=== PATIENT | male | born 1985 | race Caucasian/White ===

== ENCOUNTER 2022-04-22 08:20 | Outpatient (CLI) | payer OTHER, SELFPAY | END 2022-04-22 08:21 | disposition home or self-care (01) | LOC: NFLDREF 08:22 | PROVIDERS: PCP Family Medicine; Visit Provider Registered Nurse | DX: Z31.41 Encounter for fertility testing (principal) | CPT/HCPCS: 89310; 89322; 89398 ==

== ENCOUNTER 2024-10-03 08:11 | Emergency (ER) | payer SELFPAY ==
--- OUTSIDE RECORDS SUMMARY | 2024-10-03 08:14 | XMS_ITS | Clinical Summary ---
Author Organization [facility] Address [address] [place] [id number] Care Team Providers Care Dry Finisher Name Role Phone Lorne Marcos MD Primary Care Provider + Allergies No known active allergies Medications durable medical equipment (DME)Indications :Right hand pain,Carpal tunnel syndrome on right Quick fit wrist II, XL right 1 Each 10/23/2020 Active Family History Medical History Relation Name Comments Diabetes Father Heart Disease Father Relation Name Status Comments Brother Alive Father Alive Maternal Grandfather Maternal Grandmother Mother Alive Paternal Grandfather Paternal Grandmother Sister Alive x2 Social History Tobacco Use Types Packs/Day Years Used Date Smoking Tobacco: Former Cigarettes Smokeless Tobacco: Never Alcohol Use Standard Drinks/Week Comments Not Currently 0 (1 standard drink = 0.6 oz pur e alcohol) PHQ-2 Answer Date Recorded PHQ-2 TOTAL SCORE 0 09/30/2020 Social Connections Answer Date Recorded Frequency of Communication with Friends and Fami ly Not on file 04/05/2021 Financial Resource Strain Answer Date R ecorded Difficulty of Paying Living Expenses Not on file 04/05/2021 Difficulty of Paying Living Expenses Not on file 04/05/2021 Sex and Gender Information Value Date Recorded Sex Assigned at Not on file 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 Gender Identity Not on file Sexual Orientation Not on file Obstetrics History Last Filed Vital Signs Vital Sign Reading Time Taken Comments Blood Pressure 132/88 09/30/2020 12:52 PM CDT Pulse 103 09/30/2020 12:52 PM CDT Temperature 37.4 C (99.4 F) 06/04/2009 2:07 PM TORCH SHEARER Respiratory Rate - - Oxygen Saturation 97% 09/30/2020 12:52 PM CDT Inhaled Oxygen Concentration - - Weight 107.5 kg (237 lb) 10/23/2020 3:39 PM CDT Height 172.7 cm (5' 8) 10/23/2020 3:39 PM CDT Body Mass Index 36.04 10/23/2020 3:39 PM CDT Plan of Treatment Health Maintenance Due Date Last Done Comments (IA) Tdap 11/19/1998 HIV for age 15-65 11/19/2002 Hepatitis C screening for ag e 18-79 11/19/2005 Hepatitis B series for 19+ ( 1 of 3 - 19+ 3-dose series) 11/19/2006 Tetanus booster 2007 Depression screening for age 12+ 09/30/2021 09/30/2020 BMI (ht and wt on same day) for age 18+ 10/23/2021 10/23/2020, 09/30/2020 Lipids for age 35-44 11/19/2022 COVID-19 vaccine series (2023- season) 2023 Influenza Vaccine (Season Ended) 2024 Pneumococcal series for age 6-49 Aged Out No longer eligible b ased on patient's age to complete this topic Insurance [employer] Care Teams Dry Finisher Relationship Specialty Start Date End Date Lorne Marcos MD [address] [place] [address] PCP - General 08/12/05
[2024-10-03 08:19] VITALS: BP 143/99; PULSE 95; RESP 16; TEMP 36.8; O2SAT 99; BMI 37.1
--- NOTE | 2024-10-03 08:28 | ED.GENADULT ---
HPI - General Adult General Chief complaint: Neuro Symptoms/Altered Deficit Stated complaint: left side of body numbness Time Seen by Provider: 10/03/24 08:15 History of Present Illness HPI narrative: Pt reports he worked a 12 hour overnight shift. Laid down to sleep around 0750 hours and noticed he developed a fuzzy feeling on the left side of his face and left shoulder and arm. States this has mostly resolved, still some numbness in left arm. Neuros appear intact in triage. 38-year-old man presenting to the emergency department with concern of fuzzy tingly feeling in his left arm. It worked overnight shift which is actually a rarity went to lay down and had a fuzzy feeling over the upper left half of his face in the entirety of his left arm. No weakness. It has resolved somewhat though still remaining somewhat on the inside of his left arm and shoulder. No he feels a little bit of tightness in his chest which is not pleuritic. Used to be a smoker now vapes. Does not have a history of headaches or migraines and does not have 1 now. Does have hearing deficit chronic. No visual changes. No new shortness of breath. Few months ago was playing on monkey bars and developed a pain on the left side of his upper back below his shoulder blade maybe a little bit between. Spouse describes a bit of a knot here. There was not trauma other than just hanging on the bars. Has not had radicular symptoms with this. Has a supervisory role at work. More intense symptoms of the fuzziness in the left arm probably were 15-20 minutes. At time of interview was probably about an hour since onset. Spouse describes how he was also incoherent or she just means kind of sitting and staring not answering well her questions around the time of this event as well. Does not have chronic neck pain. Related Data Home Medications ?Medication ?Instructions ?Recorded ?Confirmed No Known Home Medications 10/03/24 10/03/24 Allergies Allergy/AdvReac Type Severity Reaction Status Date / Time cinnamon Allergy Unknown Verified 10/03/24 13:21 mushroom Allergy Unknown Verified 10/03/24 13:21 Review of Systems Status of ROS: Reports: 6 or more systems reviewed and unremarkable except as noted in History and below PFS PFS Social History Smoking Status: Never smoker Do you use any of these nicotine containing products: None Second hand tobacco smoke exposure: No How often do you have a drink containing alcohol: never AUDIT-C Alcohol total score: 0 Non-prescribed substance use: denies use Exam Narrative: Exam Narrative: Very pleasant. Does have mildly affected speech I would take to be associated with hearing difficulty. Is mild to moderately hard of hearing. Extensive tattooing. Travel lobe piercings. Head is atraumatic. Cranial nerves 2-12 intact. No sensory deficit over his head apparent. Feels a little funny yet on the inside of the left arm to palpation. Strong equal radial pulses. Does demonstrate the ability to sublux his shoulders. I am not able to reproduce clearly the discomfort that is present in the upper left back paraspinal musculature. Const: Vital Signs, click to edit/add: Vital Signs - 24 hr 10/03/24 08:19 10/03/24 13:13 10/03/24 14:41 Temperature 98.2 F Pulse Rate 88 Pulse Rate [Pulse Oximeter] 95 Respiratory Rate 16 6 L Blood Pressure 146/105 H Blood Pressure [Ri ght Upper Arm] 143/99 H 151/101 H Pulse Oximetry 99 95 Oxygen Delivery Me thod Room Air Room Air Documenting provider has reviewed patient's vital signs: yes Course Vital Signs Vital signs: Initial Vital Signs Temperature 98.2 F 10/03/24 08:19 Temperature Source Temporal Artery Scan 10/03/24 08:19 Pulse Rate 95 10/03/24 08:19 Respiratory Rate 16 10/03/24 08:19 Blood Pressure 143/99 H 10/03/24 08:19 Blood Pressure Mean 113 H 10/03/24 08:19 Blood Pressure Position Sitting 10/03/24 08:19 Pulse Oximetry 99 10/03/24 08:19 Oxygen Delivery Method Room Air 10/03/24 08:19 Vital Signs Temperature 98.2 F 10/03/24 08:19 Pulse Rate 95 10/03/24 08:19 Respiratory Rate 16 10/03/24 08:19 Blood Pressure 143/99 H 10/03/24 08:19 Pulse Oximetry 99 10/03/24 08:19 Oxygen Delivery Method Room Air 10/03/24 08:19 Temperature 98.2 F 10/03/24 08:19 Pulse Rate 88 10/03/24 13:13 Respiratory Rate 6 L 10/03/24 13:13 Blood Pressure 151/101 H 10/03/24 14:41 Pulse Oximetry 95 10/03/24 13:13 Oxygen Delivery Method Room Air 10/03/24 13:13 Medical Decision Making MDM Narrative Medical decision making narrative: Concerning I suppose is the fact that he has symptoms on his face and left arm. This suggest intra cerebral origin. Left arm is different he reports than historical. Later questioning does reveal that he has required the tingly in his hands around sleeping. Did discuss this case with Stroke Neuro. Unfortunately today we do not have CT imaging until likely mid afternoon. After discussion of considerations of likely ballpark costs as currently without certain insurance and optimal imaging both with patient and his spouse and Stroke Neuro, we settled on noncontrast brain MRI and anticipating ability to do CTA but if this is not possible would consider MRI/MRA. Stroke risk factors include smoking history and likely hypertension, overweight/obesity. On reassessment tingly sensation now is limited to the left shoulder deltoid area primarily. Initially was on the inner entire arm as well. Over time in the emergency department has been experiencing recurrence of left-sided facial/head tingling/numbness/fuzziness admittedly. This is independent of left arm symptoms. Is able to reproduce more of these left arm symptoms with raising his left arm over his head for a period of time. Continued be monitored on gathering machine setter during time in emergency department without event. INDICATION: Left-sided facial and upper extremity paresthesias. TECHNIQUE: Multisequence multiplanar MRI of the brain without the use of intravenous contrast. COMPARISON: None available. FINDINGS: No evidence of acute ischemia. Normal signal intensity of the brain parenchyma. The ventricles are normal in size. Flow voids of the larger intracranial arteries are preserved. Normal calvarial bone marrow signal intensity. Unremarkable orbits. Mild scattered paranasal sinus mucosal thickening. IMPRESSION: 1. Unremarkable noncontrast MRI of the brain. 2. Mild scattered paranasal sinus mucosal thickening. Dictated by Stefano Tariq MD @ 10/03/2024 11:39:[address] imaging. Study:?CT-Head Angio 95CC ISOVUE 370 NON ACUTE-10/03/2024 1:20:09 PM Ordering Physician:Zhang Pradhan Preliminary Report: CTA head and neck: 1. No evidence of proximal artery occlusion, high grade stenosis, aneurysm, dissection, or vascular malformation. 2. Final report per neurointerventional radiology service. Read by:?Lorne Dennis MD @10/03/2024 1:32:35 PM Study:?CT-Neck Angio Angio 95CC ISOVUE 370 NON ACUTE-10/03/2024 1:20:32 PM Ordering Physician:Zhang Pradhan Preliminary Report: CTA head and neck: 1. No evidence of proximal artery occlusion, high grade stenosis, aneurysm, dissection, or vascular malformation. 2. Final report per neurointerventional radiology service. Read by:?Lorne Dennis MD @10/03/2024 1:32:46 PM Perhaps some retrograde symptoms somehow into face and neck? Is it possible that these symptoms are primarily originating from the neck and/or shoulder area? See patient discharge plan for further discussion I am relieved that these symptoms have settled. It is a puzzling presentation and we cannot rule out that you have not had a TIA as discussed. I understand that you would not want to be admitted. Please take 81 mg of aspirin daily and follow up in primary care for further recommendations. Please clarify your insurance status in anticipation of this visit as well. See handout on upper back pain. These may help you to work out that area you been struggling with. ECG Data Attestation: I personally reviewed and interpreted this ECG as follows: (Normal sinus rhythm at a rate of 89. ) Discharge Plan Discharge Clinical Impression: Paresthesia, Back pain Patient Disposition: Home w/ Parent or Adult Condition: Improved Additional Instructions: I am relieved that these symptoms have settled. It is a puzzling presentation and we cannot rule out that you have not had a TIA as discussed. I understand that you would not want to be admitted. Please take 81 mg of aspirin daily and follow up in primary care for further recommendations. Please clarify your insurance status in anticipation of this visit as well. See handout on upper back pain. These may help you to work out that area you been struggling with. Prescriptions: No Action No Known Home Medications Follow Up/Referrals: Lorne Marcos MD [Primary Care Provider, [facility]] Stand Alone Forms: Bundle It Info Instructions
--- NOTE | 2024-10-03 09:02 | CRLHL7_ITS ---
For Patients: As a result of the Century Cures Act, medical imaging exams and procedure reports are released immediately into your electronic medical record. You may view this report before your referring provider. If you have questions, please contact your health care provider. Indication: UPPER LEFT FAC AND LEFT ARM TINGLY Technique: CT of the head without contrast. Coronal and sagittal reformats. Bone and soft tissue windows. Comparison: MRI 10/03/2024. Findings: No acute intracranial hemorrhage or extra-axial collection. No evidence of acute cortical infarction. No mass effect or midline shift. Normal cerebral volume. The ventricles are normal in size, shape and contour. There is normal cabrera and white matter differentiation. The orbital contents are normal. No calvarial fractures. No lytic or sclerotic osseous lesions within the calvarium or skull base. Scalp and other imaged soft tissue structures are normal. Mastoid air cells are clear. Trace mucosal thickening in the maxillary sinuses. Bilateral eyebrow piercings. Impression: No acute intracranial abnormality. Please note that all CT scans at this facility use dose modulation, iterative reconstruction, and/or weight-based dosing when appropriate to reduce radiation dose to as low as reasonably achievable. Dictated by Lorne Dennis MD @ 10/03/2024 1:29:59 PM (Electronically Signed)
--- NOTE | 2024-10-03 09:02 | CRLHL7_ITS ---
For Patients: As a result of the Cures Act, medical imaging exams and procedure reports are released immediately into your electronic medical record. You may view this report before your referring provider. If you have questions, please contact your health care provider. CLINICAL HISTORY: Acute neurological deficit. COMPARISON: None available. TECHNIQUE: CTA neck with contrast bolus tracking, 3D angiographic rendering using maximum intensity projection (MIP) and images permanently archived. FINDINGS: The origins of the great vessels are patent. There is no significant carotid artery stenosis or dissection. There is no significant vertebral artery stenosis or dissection. IMPRESSION: Patent cervical arterial vasculature without hemodynamically significant stenosis. Please note that all CT scans at this facility use dose modulation, iterative reconstruction, and/or weight-based dosing when appropriate to reduce radiation dose to as low as reasonably achievable. Dictated by Hemal Zambrano MD @ 10/04/2024 9:48:29 AM (Electronically Signed)
--- NOTE | 2024-10-03 09:02 | CRLHL7_ITS ---
For Patients: As a result of the Century Cures Act, medical imaging exams and procedure reports are released immediately into your electronic medical record. You may view this report before your referring provider. If you have questions, please contact your health care provider. CLINICAL HISTORY: Acute neurological deficit. COMPARISON: None available. TECHNIQUE: Standard helical CT image acquisition through the head following the administration of intravenous contrast was performed. 3D and MIP reconstructions were performed at a separate workstation and permanently archived. FINDINGS: No intracranial proximal large vessel occlusion or flow-limiting luminal stenosis. No evidence of cerebral aneurysm. No findings to suggest an arterial-venous shunting lesion. The major dural venous sinuses and deep venous system are patent. IMPRESSION: No intracranial proximal large vessel occlusion, flow-limiting luminal stenosis, or cerebral aneurysm. Please note that all CT scans at this facility use dose modulation, iterative reconstruction, and/or weight-based dosing when appropriate to reduce radiation dose to as low as reasonably achievable. Dictated by Hemal Zambrano MD @ 10/04/2024 9:49:53 AM (Electronically Signed)
--- NOTE | 2024-10-03 10:04 | CRLHL7_ITS ---
For Patients: As a result of the Century Cures Act, medical imaging exams and procedure reports are released immediately into your electronic medical record. You may view this report before your referring provider. If you have questions, please contact your health care provider. INDICATION: Left-sided facial and upper extremity paresthesias. TECHNIQUE: Multisequence multiplanar MRI of the brain without the use of intravenous contrast. COMPARISON: None available. FINDINGS: No evidence of acute ischemia. Normal signal intensity of the brain parenchyma. The ventricles are normal in size. Flow voids of the larger intracranial arteries are preserved. Normal calvarial bone marrow signal intensity. Unremarkable orbits. Mild scattered paranasal sinus mucosal thickening. IMPRESSION: 1. Unremarkable noncontrast MRI of the brain. 2. Mild scattered paranasal sinus mucosal thickening. Dictated by Stefano Tariq MD @ 10/03/2024 11:39:57 AM (Electronically Signed)
[2024-10-03 13:13] VITALS: BP 146/105; PULSE 88; RESP 6; O2SAT 95
[2024-10-03 14:41] VITALS: BP 151/101
== END 2024-10-03 14:49 | disposition home or self-care (01) ==
PROVIDERS: Emergency Provider Family Medicine; PCP Family Medicine
DX: R20.2 Paresthesia of skin (principal); M54.9 Dorsalgia, unspecified
CPT/HCPCS: 70450; 70496; 70498; 70551; 80048; 84484; 85018; 93005; 99284; 99285; Q9967

== ENCOUNTER 2024-10-05 21:58 | Emergency (ER) | payer OTHER, SELFPAY ==
[2024-10-05] VITALS (16 sets, daily range): BP systolic 123–146; BP diastolic 70–93; PULSE 79–93; RESP 8–22; TEMP 37; O2SAT 94–98; BMI 39.0
--- OUTSIDE RECORDS SUMMARY | 2024-10-05 22:00 | XMS_ITS | Clinical Summary ---
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 Gender Identity Not on file Sexual Orientation Not on file Obstetrics History Last Filed Vital Signs Vital Sign Reading Time Taken Comments Blood Pressure 132/88 09/30/2020 12:52 PM CDT Pulse 103 09/30/2020 12:52 PM CDT Temperature 37.4 C (99.4 F) 06/04/2009 2:07 PM SHALLOT PACKER Respiratory Rate - - Oxygen Saturation 97% 09/30/2020 12:52 PM CDT Inhaled Oxygen Concentration - - Weight 107.5 kg (237 lb) 10/23/2020 3:39 PM CDT Height 172.7 cm (5' 8) 10/23/2020 3:39 PM CDT Body Mass Index 36.04 10/23/2020 3:39 PM CDT Plan of Treatment Health Maintenance Due Date Last Done Comments Tetanus booster 11/19/1998 HIV for age 15-65 11/19/2002 Hepatitis C screening for ag e 18-79 11/19/2005 Hepatitis B series for 19+ ( 1 of 3 - 19+ 3-dose series) 11/19/2006 Depression screening for age 12+ 09/30/2021 09/30/2020 BMI (ht and wt on same day) for age 18+ 10/23/2021 10/23/2020, 09/30/2020 Lipids for age 35-44 11/19/2022 COVID-19 vaccine series ( - 2023- season) 2023 Influenza Vaccine (#1) 2024 Pneumococcal series for age 6-49 Aged Out No longer eligible b ased on patient's age to complete this topic Insurance [employer] Care Teams Breast Splitter Relationship Specialty Start Date End Date Lorne Marcos MD [address] [place] [address] PCP - General 08/12/05
--- NOTE | 2024-10-05 22:18 | CRLHL7_ITS ---
For Patients: As a result of the Cures Act, medical imaging exams and procedure reports are released immediately into your electronic medical record. You may view this report before your referring provider. If you have questions, please contact your health care provider. INDICATION: Facial numbness TECHNIQUE: CT Head without i.v. contrast. Coronal and sagittal reformats were obtained. COMPARISON: 10/03/2024 FINDINGS: CSF space: The ventricles are normal for age. Brain: No evidence of mass, acute infarction or hemorrhage is seen. No mass-effect or midline shift is seen. The brain parenchyma is otherwise normal in appearance with preservation of the powell-white matter junction. Calvarium: The visualized paranasal sinuses are well aerated. The mastoid air cells are clear. The visualized orbits are grossly unremarkable. The calvarium is unremarkable in appearance with no fractures identified. IMPRESSION: 1. No evidence of acute infarction, intracranial hemorrhage, or mass-effect seen. The findings were verbally communicated with Dr. Haile at 10:54 PM. Please note that all CT scans at this facility use dose modulation, iterative reconstruction, and/or weight-based dosing when appropriate to reduce radiation dose to as low as reasonably achievable. Dictated by: Km Riley MD @ 10/05/2024 22:54:42 (Electronically Signed)
--- NOTE | 2024-10-05 22:21 | ED_ITS ---
HPI - Neuro Symptoms/Deficit General Date Seen: 10/05/24 Chief Complaint: Neuro Symptoms/Altered Deficit Stated Complaint: Seen here Wednesday, numb face again Time Seen by Provider: 10/05/24 22:10 Source: patient Mode of arrival: ambulatory Limitations: no limitations History of Present Illness HPI Narrative: Patient is a 38-year-old male with no pertinent mother will history presenting to the emergency department for left-sided facial numbness and left shoulder numbness. He states will 30 minutes prior to arrival he started having numbness of left side of his face from his cheek down. Is also having numbness to his shoulder down to about his mid upper arm. Had the same symptoms 2 days prior where he had CT, CTA, MRI all done and all were negative. He was sent home an aspirin. Symptoms were resolved by time he went home. He was sent home on aspirin. Does state numbness seems to be less than it was 2 days ago. He he says symptoms started when he got home from work today. Denies any chest pain, shortness of breath, vision changes, weakness, headache, abdominal pain, diarrhea, constipation, dysuria. Related Data Home Medications ?Medication ?Instructions ?Recorded ?Confirmed aspirin 81 mg chewable tablet 81 mg PO DAILY 10/05/24 10/05/24 (Aspirin Childrens) Allergies Allergy/AdvReac Type Severity Reaction Status Date / Time cinnamon Allergy Unknown Verified 10/05/24 23:32 mushroom Allergy Unknown Verified 10/05/24 23:32 [facility] Social History Smoking Status: Never smoker Do you use any of these nicotine containing products: None Second hand tobacco smoke exposure: No How often do you have a drink containing alcohol: never AUDIT-C Alcohol total score: 0 Non-prescribed substance use: denies use Exam Narrative: Exam Narrative: Const: Well-nourished, Well-developed, in mild distress Eyes: PERRL, no conjunctival injection, and symmetrical lids HENT: Atraumatic external nose and ears. Moist mucous membranes. Neck: Symmetric, trachea midline, No thyromegaly. CVS: RRR, No murmurs or gallops. Peripheral pulses 2+ and equal in all extremities RESP: Unlabored respiratory effort. Clear to auscultation bilaterally. GI: Nontender/Nondistended, No rebound or guarding. MSK:Extremities w/o deformity, Normal Active ROM Skin: Warm, Dry. No rashes or lesions. Neuro: Normal Muscle tone, Cranial nerves 2-12 grossly intact other than numbness in the left lower face, normal [id number], normal [id number], normal gait, normal strength 5/5 upper lower extremities bilaterally, normal sensation upper and lower extremities bilaterally other than some mild numbness to the left upper inner arm, normal rapid alternating movements. NIH stroke scale 1 with the numbness Psych: Awake, Alert, & Oriented x3. Appropriate mood and affect. Const: Vital Signs, click to edit/add: Vital Signs - 24 hr 10/05/24 22:11 Temperature 98.6 F Pulse Rate [Pulse Oximeter] 93 Respiratory Rate 18 Blood Pressure [Ri ght Upper Arm] 146/93 H Pulse Oximetry 98 Oxygen Delivery Me thod Room Air Course Vital Signs Vital signs: Initial Vital Signs Temperature 98.6 F 10/05/24 22:11 Temperature Source Temporal Artery Scan 10/05/24 22:11 Pulse Rate 93 10/05/24 22:11 Pulse Rhythm Regular 10/05/24 22:11 Respiratory Rate 18 10/05/24 22:11 Blood Pressure 146/93 H 10/05/24 22:11 Blood Pressure Mean 110 H 10/05/24 22:11 Pulse Oximetry 98 10/05/24 22:11 Oxygen Delivery Method Room Air 10/05/24 22:11 Vital Signs Temperature 98.6 F 10/05/24 22:11 Pulse Rate 93 10/05/24 22:11 Respiratory Rate 18 10/05/24 22:11 Blood Pressure 146/93 H 10/05/24 22:11 Pulse Oximetry 98 10/05/24 22:11 Oxygen Delivery Method Room Air 10/05/24 22:11 Temperature 98.6 F 10/05/24 22:11 Pulse Rate 93 10/05/24 22:11 Respiratory Rate 18 10/05/24 22:11 Blood Pressure 146/93 H 10/05/24 22:11 Pulse Oximetry 98 10/05/24 22:11 Oxygen Delivery Method Room Air 10/05/24 22:11 MDM - Neuro Symptoms/Deficit MDM Narrative Medical decision making narrative: Patient is a 38-year-old male presenting for paresthesias to his left lower face and left upper arm. Concerning symptoms only occurred 30 minutes ago I did call a code stroke although seems less likely this is a stroke as he just had normal imaging 2 days ago and he is only 38. Has had demonstrate for a CT head non- con. I did speak to Dr. Arriaga who agrees this is unlikely a stroke and does not recommend further imaging. States he should follow-up outpatient. We are in agreement is likely paresthesias. Did order stroke labs including CBC, BMP, coags. These returned showing no concerning abnormalities. Head CT reviewed by myself and the radiologist shows no acute findings. EKG shows no acute findings. His symptoms have now resolved. He states symptoms got better as he relaxed. He will be discharged does have a follow-up with his primary care provider this upcoming Wednesday Lab Data Labs: Lab Results 10/05/24 Range/Units 10:15 WBC 9.34 (4.50-11.00) K/uL RBC 5.56 (4.30-5.90) m/uL Hgb 15.9 (13.5-17.5) gm/dL Hct 46.3 (37.0-53.0) % MCV 83 (80-100) fL MCH 29 (26-34) pg MCHC 34 (32-36) gm/dL RDW Coeff of Jesus 12.1 (11.5-15.5) % Plt Count 246 (140-440) K/uL Neut % (Auto) 52.9 (42.0-72.0) % Lymph % (Auto) 36.6 (20-44) % Dixon % (Auto) 7.3 (0.0-11.0) % Eos % (Auto) 2.0 (0.0-7.0) % Baso % (Auto) 0.2 (0.0-3.0) % Neut # (Auto) 4.94 (1.7-7.0) K/uL Lymph # (Auto) 3.42 H (0.90-2.90) K/uL Dixon # (Auto) 0.70 (0.00-0.90) K/UL Eos # (Auto) 0.19 (0.00-0.50) K/uL Baso # (Auto) 0.02 (0.00-0.30) K/uL Abs Immat Gran (auto) 0.09 (0.00-0.30) K/uL Imm/Tot Granulo (auto) 1.0 % INR 0.88 L (0.91-1.10) APTT 27 (23-33) Seconds Sodium 139 (135-149) mmol/L Potassium 4.0 (3.6-5.1) mmol/L Chloride 102 (96-114) mmol/L Carbon Dioxide 27 (20-32) mmol/L Anion Gap 10 (7-15) mEq/L BUN 17 (5-24) mg/dL Creatinine 1.1 (0.5-1.5) mg/dL Estimated Creat Clear 86.80 Estimated GFR 89 ml/min Glucose 99 (60-115) mg/dL Calcium 9.3 (8.4-10.6) mg/dL Imaging Data CT scan - head: Attestation: I have reviewed the pertinent imaging results. Radiologist's impression: 1. No evidence of acute infarction, intracranial hemorrhage, or mass-effect seen. The findings were verbally communicated with Dr. Haile at 10:54 PM. Please note that all CT scans at this facility use dose modulation, iterative reconstruction, and/or weight-based dosing when appropriate to reduce radiation dose to as low as reasonably achievable. Dictated by: Km Riley MD @ 10/05/2024 22:54:42 ECG Data Attestation: I personally reviewed and interpreted this ECG as follows: Prior ECG tracings: available for review Interpretation: Normal sinus rhythm with a rate of 82 beats per minute, normal intervals, normal axis, no ST or T-wave abnormalities. Appears similar previous EKG on file Discharge Plan Discharge Clinical Impression: Paresthesia Patient Disposition: Home, Self-Care Condition: Stable Instructions: Paresthesia (ED) Additional Instructions: If symptoms happened again I recommend deep breathing exercises and or walking around as he did mention moving around does seem to make his symptoms better. Follow-up with primary care. They may recommend neurology outpatient follow-up. Continue to take the previously prescribed aspirin for now. Prescriptions: No Action No Known Home Medications Follow Up/Referrals: Lorne Marcos MD [Primary Care Provider, [facility]] Stand Alone Forms: Electronic [facility]iller Info Instructions
--- NOTE | 2024-10-05 22:36 | ED.NURSE ---
Stroke code initiated at 2204. Dr. Moore cancelled stroke code at 2235.
[2024-10-05 22:38] LABS: Chloride* 102 mmol/L (96-114); Potassium* 4.0 mmol/L (3.6-5.1); Sodium* 139 mmol/L (135-149)
[2024-10-05 22:41] LABS: Anion Gap 10 mEq/L (7-15); Blood Urea Nitrogen* 17 mg/dL (5-24); Calcium* 9.3 mg/dL (8.4-10.6); Carbon Dioxide* 27 mmol/L (20-32); Creatinine* 1.1 mg/dL (0.5-1.5); Est. Creatinine Clearance* 86.80; Estimated Glomerular Filt Rate 89 ml/min; Glucose* 99 mg/dL (60-115)
[2024-10-05 22:42] LABS: Hematocrit 46.3 % (37.0-53.0); Hemoglobin* 15.9 gm/dL (13.5-17.5); INR 0.88 (0.91-1.10); Immature Granulocytes Abs Auto 0.09 K/uL (0.00-0.30); Immature Granulocytes Pct Auto 1.0 %; Lymphocytes Absolute Auto 3.42 K/uL (0.90-2.90); Mean Corpuscular HGB Conc 34 gm/dL (32-36); Mean Corpuscular Hemoglobin 29 pg (26-34); Mean Corpuscular Volume 83 fL (80-100); Prothrombin Time 12.7 Seconds; RDW Coefficient of Variation % 12.1 % (11.5-15.5); Red Blood Count 5.56 m/uL (4.30-5.90); White Blood Count* 9.34 K/uL (4.50-11.00)
[2024-10-05 22:44] LABS: Slide Review Reflex No
== END 2024-10-05 23:49 | disposition home or self-care (01) ==
PROVIDERS: Emergency Provider Student in an Organized Health Care Education/Training Program; PCP Family Medicine
DX: R20.2 Paresthesia of skin (principal)
CPT/HCPCS: 36415; 70450; 80048; 82962; 84484; 85025; 85610; 85730; 93005; 94761; 99284